=== PATIENT | female | born 1975 | race Caucasian/White ===

== ENCOUNTER 2018-06-16 11:40 | Day surgery (SDC) | payer BC ==
[~2018-06-16] VITALS: Ht 157.5 cm; Wt 94.8 kg
[~2018-06-16 11:40] MED LIST: DICY20TA; FERR325T3 PO; GABA600T4; IMIT100T PO; METF500T4 PO; NS 1,000 ML IV ONE; PROPOFOL 500 MG/50 ML VIAL As Ordered ONE; SPIR50TA4; TIZA4CAP6 PO; TYLE650T35 PO; VIIB40TA; VITA100067 PO; VITA500T53 PO
[2018-06-16] MEDS ORDERED: LIDOCAINE 2% INJ 100 MG/5 ML SDV (FOR ANES.) As Ordered ONE (12:17)
--- NOTE | 2018-06-16 12:28 | ROOR ---
Patient Name: Rachell Jones Procedure Date: 06/16/2018 12:16 PM Date of : 1975 Age: 42 Room: [facility] Gender: Female Note Status: Finalized Procedure: Upper GI endoscopy Indications: Nausea Providers: Alek GUADARRAMA MD Referring MD: ROCIO ROJAS MD Requesting Provider: Medicines: Monitored Anesthesia Care Complications: No immediate complications. Procedure: Pre-Anesthesia Assessment: - The heart rate, respiratory rate, oxygen saturations, blood pressure, adequacy of pulmonary ventilation, and response to care were monitored throughout the procedure. The Endoscope was introduced through the mouth, and advanced to the jejunum. The upper GI endoscopy was accomplished without difficulty. The patient tolerated the procedure well. Findings: The examined esophagus was normal. Evidence of a Sylvia-en-Y gastrojejunostomy was found. The gastrojejunal anastomosis was characterized by healthy appearing mucosa. The exam of the stomach was otherwise normal. The examined jejunum was normal. Impression: - Normal esophagus. - Sylvia-en-Y gastrojejunostomy with gastrojejunal anastomosis characterized by healthy appearing mucosa. - The exam of the remaining stomach was otherwise normal. - Normal examined jejunum. - No specimens collected. Recommendation: - I anticipate no further need for intervention. - Observe patient's clinical course. - Continue present medications. - Return to referring physician as previously scheduled. Alek Guadarrama MD Alek GUADARRAMA MD 06/16/2018 12:27:34 PM This report has been signed electronically. Number of Addenda: 0 Note Initiated On: 06/16/2018 12:16 PM Estimated Blood Loss: Estimated blood loss: none.
--- NOTE | 2018-06-16 12:42 | ROOR ---
Patient Name: Rachell Jones Procedure Date: 06/16/2018 12:17 PM Date of : 1975 Age: 42 Room: [facility] Gender: Female Note Status: Finalized Procedure: Colonoscopy Indications: Abnormal CT of the GI tract, Exclusion of colitis, Mixed irritable bowel syndrome Providers: Alek GUADARRAMA MD Referring MD: ROCIO ROJAS MD Requesting Provider: Medicines: Monitored Anesthesia Care Complications: No immediate complications. Procedure: Pre-Anesthesia Assessment: - The heart rate, respiratory rate, oxygen saturations, blood pressure, adequacy of pulmonary ventilation, and response to care were monitored throughout the procedure. The Colonoscope was introduced through the anus and advanced to 10 cm into the ileum. The colonoscopy was performed without difficulty. The patient tolerated the procedure well. The quality of the bowel preparation was good. Findings: The perianal and digital rectal examinations were normal. Small Internal Hemorrhoids. The colon (entire examined portion) appeared normal. The terminal ileum appeared normal. Impression: - Small Internal Hemorrhoids. - The entire colon is normal. - The 10 cm examined portion of the ileum was normal. - No specimens collected. - (Irritable Bowel Syndrome/IBS suspected.) Recommendation: - Use fiber, for example Citrucel, Fibercon, Konsyl or Metamucil. - Use Bentyl (dicyclomine) 20 mg PO Q 4-6 hrs PRN 30 min AC. - Return to referring physician as previously scheduled. Alek Guadarrama MD Alek GUADARRAMA MD 06/16/2018 12:41:27 PM This report has been signed electronically. Number of Addenda: 0 Note Initiated On: 06/16/2018 12:17 PM Estimated Blood Loss: Estimated blood loss: none.
[2018-06-16 13:00] VITALS: BP 141/83
== END 2018-06-16 13:20 | disposition home or self-care (01) ==
LOC: M OPP 11:40
PROVIDERS: ATTEND Internal Medicine Gastroenterology
DX: K58.2 Mixed irritable bowel syndrome (principal); R93.3 Abnormal findings on diagnostic imaging of other parts of digestive tract; Z98.0 Intestinal bypass and anastomosis status; R11.0 Nausea; G47.30 Sleep apnea, unspecified; K64.8 Other hemorrhoids; Z79.84 Long term (current) use of oral hypoglycemic drugs; Z79.899 Other long term (current) drug therapy; Z88.8 Allergy status to other drugs, medicaments and biological substances

== ENCOUNTER → 2018-10-22 | Outpatient (CLI) | payer BC ==
[~2018-10-22] MED LIST changes: -NS 1,000 ML IV ONE; -PROPOFOL 500 MG/50 ML VIAL As Ordered ONE; +VITA500T17 PO; -VITA500T53 PO
--- NOTE | 2018-10-22 11:34 | REP ---
Urinary tract sonogram: Renal artery Doppler flow study. History: Bilateral adrenal gland lesions. No hypertension. Comparison: CT study of the abdomen from March 12, 2018. Findings: Scanning at the level of the urinary bladder shows no abnormality. Calculated filled bladder volume is 52 ml. Renal cortical echogenicity pattern is normal bilaterally and contours are smooth. There is no evidence of hydronephrosis, cyst, mass, or calculus in either kidney. The right kidney measures 10.3 x 4.3 x 4.8 cm. A right adrenal nodule is visualized sonographically measuring 3.0 x 2.7 x 2[address] findings. It is nonspecific by ultrasound. It is hypoechoic. Left renal dimensions are 11.6 x 5.5 x 5.1 cm. Impression: 3.0 cm right adrenal nodule seen corresponding to the CT scan. Otherwise normal urinary tract sonography. Renal artery Doppler flow study: Peak systolic flow in the abdominal aorta at the level of the renal arteries is normal measured at 114 cm/sec. Peak systolic flow velocity recorded in the left main renal artery is normal at 132 cm/sec. That recorded in the right is also normal and 95 cm/sec. Renal to aortic flow velocity ratios are therefore normal at 0.8 on the right and 1.2 on the left. The resistive indices and acceleration times are measured in the upper, mid, and lower pole of each kidney and these values are normal bilaterally. Impression: No renal artery Doppler evidence to suggest stenosis. Electronically Signed by Sundeep Townsend MD 10/22/2018 11:25 A
== END ==
LOC: M RAD 08:51
PROVIDERS: ATTEND Nurse Practitioner Family
DX: E27.9 Disorder of adrenal gland, unspecified (principal)